=== PATIENT | male | born 1990 | race Caucasian/White ===

== ENCOUNTER 2019-03-23 04:16 | Emergency (ER) | payer OTHER ==
[~2019-03-23] VITALS: Ht 162.6 cm; Wt 89.8 kg
[2019-03-23 05:03] LABS: HEMATOCRIT 44.5 % (42.0-52.0); HEMOGLOBIN 13.7 gm/dL (14.0-18.0); MCH 22.2 pg (26.0-34.0); MCHC 30.8 g/dL (28.0-37.0); MCV 71.9 fL (80.0-100.0); PLATELET COUNT 216 thou/uL (150-400); RBC 6.18 mil/uL (4.50-6.00); RDW 14.9 % (10.5-14.5); WBC 4.2 thou/uL (4.0-11.0)
[2019-03-23 05:17] LABS: PROTIME 10.7 Seconds (9.3-11.4)
[2019-03-23 05:48] VITALS: BP 122/69
[2019-03-23 06:09] LABS: ABSOLUTE NEUTROPHILS 2.1 thou/uL (1.4-8.2); PLATELET ESTIMATE NORMAL
[2019-03-23 06:10] LABS: ANISOCYTOSIS 1+; HYPOCHROMASIA 2+; MICROCYTES 2+; POIKILOCYTOSIS 1+
== END 2019-03-23 05:48 | disposition home or self-care (01) ==
LOC: EDBD 04:16 → ER 04:16
PROVIDERS: Emergency Medicine
DX: K06.8 Other specified disorders of gingiva and edentulous alveolar ridge (principal)